=== PATIENT | female | born 1980 | race Caucasian/White ===

== ENCOUNTER 2018-12-20 04:14 | Emergency (ER) | payer SELFPAY ==
[2018-12-20] MEDS ORDERED: Zofran 4 MG/2 ML VIAL IV ONE (04:40)
[2018-12-20] MEDS ORDERED: Sodium Chloride 0.9% 1000 ML 1,000 ML IV STA (04:40)
--- NOTE | 2018-12-20 04:46 | ERPHSYRPT ---
- History of Present Illness Time Seen by Provider: 12/20/18 04:36 Historian: patient Exam Limitations: no limitations Physician History: C/o nausea, vomiting few times x 2-3 days, developed LLQ abdominal pain this morning. She denies vomiting, blood or coffee ground material, no diarrhea, or fever, chills, no urinary complaints, except nonproductive cough. Timing/Duration: day(s) (3), intermittent Activities at Onset: none Quality: cramping, sharpness Abdominal Pain Onset Location: LLQ Pain Radiation: no radiation Severity of Pain-Max: moderate Severity of Pain-Current: mild Modifying Factors: Improves With: nothing Associated Symptoms: diaphoresis, loss of appetite, nausea, vomiting Previous symptoms: no prior history Allergies/Adverse Reactions: No Known Drug Allergies Allergy (Unverified 12/20/18 09:15) - Review of Systems Constitutional: No Symptoms Ears, Nose, & Throat: No Symptoms Respiratory: No Symptoms Cardiac: No Symptoms Abdominal/Gastrointestinal: Abdominal Pain, Nausea, Vomiting Genitourinary Symptoms: No Symptoms Musculoskeletal: No Symptoms Skin: No Symptoms Neurological: No Symptoms All Other Systems: Reviewed and Negative - Female History Hx Now: No - Nursing Vital Signs Nursing Vital Signs: Initial Vital Signs Temperature 97.9 F 12/20/18 04:14 Pulse Rate 102 H 12/20/18 04:14 Respiratory Rate 102 H 12/20/18 04:14 Blood Pressure 106/93 12/20/18 04:14 O2 Sat by Pulse Oximetry 95 12/20/18 04:14 Pain Scale Pain Intensity 0 - Physical Exam General Appearance: no apparent distress Ears, Nose, Throat Exam: normal ENT inspection Neck Exam: normal inspection Respiratory Exam: normal breath sounds, lungs clear, airway intact Cardiovascular Exam: regular rate/rhythm, normal heart sounds, normal peripheral pulses, No murmur Gastrointestinal/Abdomen Exam: soft, normal bowel sounds, tenderness (mod. LLQ) , No distention, No mass, No guarding, No rebound, No organomegaly Back Exam: normal inspection, No CVA tenderness Extremity Exam: normal inspection, No calf tenderness Neurologic Exam: alert, oriented x 3, cooperative, normal mood/affect Skin Exam: normal color, warm, dry, No rash, No cyanosis, No diaphoresis Lymphatic Exam: No adenopathy SpO2 Interpretation: normal SpO2: 95 O2 Delivery: Room Air - Course Nursing assessment & vital signs reviewed: Yes - Radiology Exams Chest X-ray Interpretation: Interpreted by me, Negative - CT Exams Abdomen/Pelvis CT Interpretation: Tele-radiologist Report, Other ([place] in [place] Air[place] disease) Ordered Tests: Active Orders 24 hr Category Date Time Status IV Insertion STAT Care 12/20/18 04:40 Active ABDOMEN AND PELVIS W CONTRAST [CT] Stat Exams 12/20/18 04:41 Taken CHEST 2 VIEWS (PA AND LAT) Stat Exams 12/20/18 04:41 Taken CBC W DIFF Stat Lab 12/20/18 04:55 Completed CMP Stat Lab 12/20/18 04:55 Completed CULTURE,URINE Stat Lab 12/20/18 06:50 Received HCG QUALITATIVE,SERUM Stat Lab 12/20/18 05:12 Completed HCG,QUALITATIVE URINE Stat Lab 12/20/18 06:51 Completed LIPASE Stat Lab 12/20/18 04:55 Completed Lactic Acid Stat Lab 12/20/18 04:45 Completed UA W/RFX UR CULTURE Stat Lab 12/20/18 06:50 Completed Medication Summary Discontinued Medications Generic Name Dose Route Start Last Admin Trade Name Freq PRN Reason Stop Dose Admin Sodium Chloride 1,000 mls @ 999 mls/hr 12/20/18 04:40 12/20/18 09:15 Sodium Chloride 0.9% 1000 Ml IV 12/20/18 05:40 Infused .Q1H1M STA Infusion Sodium Chloride Confirm 12/20/18 04:59 Sodium Chloride 0.9% 1000 Ml Administered 12/20/18 05:00 Dose 1,000 mls @ ud .ROUTE .STK-MED ONE Ondansetron HCl 4 mg 12/20/18 04:40 12/20/18 05:06 Zofran 4 Mg/2 Ml Vial IV 12/20/18 04:41 4 mg STAT ONE Administration Ondansetron HCl Confirm 12/20/18 04:58 Zofran 4 Mg/2 Ml Vial Administered 12/20/18 04:59 Dose 4 mg .ROUTE .STK-MED ONE Trimethoprim/Sulfamethoxazole 1 tab 12/20/18 09:09 12/20/18 09:16 Bactrim Ds Tablet PO 12/20/18 09:10 1 tab STAT STA Administration Trimethoprim/Sulfamethoxazole Confirm 12/20/18 09:15 Bactrim Ds Tablet Administered 12/20/18 09:16 Dose 1 tab PO .STK-MED ONE Lab/Rad Data: Laboratory Result Diagrams 12/20/18 04:55 12/20/18 04:55 Laboratory Results 12/20/18 12/20/18 12/20/18 Range/Units 06:51 06:50 05:12 WBC (4.0-10.5) K/mm3 RBC (4.1-5.4) M/mm3 Hgb (12.0-16.0) gm/dl Hct (35-47) % MCV (78-100) fl MCH (26-32) pg MCHC (32-36) g/dl RDW (11.5-14.0) % Plt Count (150-450) K/mm3 MPV (6-9.5) fl Gran % (36.0-66.0) % Eos # (Auto) (0-0.5) Absolute Lymphs (auto) (1.0-4.6) Absolute Monos (auto) (0.0-1.3) Lymphocytes % (24.0-44.0) % Monocytes % (0.0-12.0) % Eosinophils % (0.00-5.0) % Basophils % (0.0-0.4) % Absolute Granulocytes (1.4-6.9) Basophils # (0-0.4) Sodium (137-145) mmol/L Potassium (3.5-5.1) mmol/L Chloride (98-107) mmol/L Carbon Dioxide (22-30) mmol/L Anion Gap (5-15) MEQ/L BUN (7-17) mg/dL Creatinine (0.52-1.04) mg/dL Estimated GFR ML/MIN Glucose (74-106) mg/dL Lactic Acid (0.4-2.0) Calcium (8.4-10.2) mg/dL Total Bilirubin (0.2-1.3) mg/dL AST (14-36) U/L ALT (0-35) U/L Alkaline Phosphatase (38-126) U/L Serum Total Protein (6.3-8.2) g/dL Albumin (3.5-5.0) g/dL Lipase (23-300) U/L Serum , Qual NEGATIVE (Negative) Urine Color YELLOW (YELLOW) Urine Appearance SLIGHTLY CLOUDY (CLEAR) Urine pH 6.0 (5-6) Ur Specific [place] 1.029 (1.005-1.025) Urine Protein NEGATIVE (Negative) Urine Ketones TRACE (NEGATIVE) Urine Blood LARGE (0-5) Jackson/ul Urine Nitrite NEGATIVE (NEGATIVE) Urine Bilirubin NEGATIVE (NEGATIVE) Urine Urobilinogen NEGATIVE (0-1) mg/dL Ur Leukocyte Esterase LARGE (NEGATIVE) Urine WBC (Auto) 26-50 (0-5) /HPF Urine RBC (Auto) 26-50 (0-2) /HPF U Epithel Cells (Auto) RARE (FEW) /HPF Urine Bacteria (Auto) FEW (NEGATIVE) /HPF Urine Mucus (Auto) SLIGHT (NEGATIVE) /HPF Urine Culture Reflexed YES (NO) Urine Glucose NEGATIVE (NEGATIVE) mg/dL Urine HCG, Qual NEGATIVE (Negative) 12/20/18 12/20/18 12/20/18 Range/Units 04:55 04:55 04:45 WBC 8.5 (4.0-10.5) K/mm3 RBC 4.83 (4.1-5.4) M/mm3 Hgb 12.2 (12.0-16.0) gm/dl Hct 37.4 (35-47) % MCV 77.4 L (78-100) fl MCH 25.3 L (26-32) pg MCHC 32.6 (32-36) g/dl RDW 14.9 H (11.5-14.0) % Plt Count 163 (150-450) K/mm3 MPV 9.3 (6-9.5) fl Gran % 73.0 H (36.0-66.0) % Eos # (Auto) 0.02 (0-0.5) Absolute Lymphs (auto) 1.49 (1.0-4.6) Absolute Monos (auto) 0.76 (0.0-1.3) Lymphocytes % 17.6 L (24.0-44.0) % Monocytes % 9.0 (0.0-12.0) % Eosinophils % 0.2 (0.00-5.0) % Basophils % 0.2 (0.0-0.4) % Absolute Granulocytes 6.20 (1.4-6.9) Basophils # 0.02 (0-0.4) Sodium 138 (137-145) mmol/L Potassium 3.8 (3.5-5.1) mmol/L Chloride 104 (98-107) mmol/L Carbon Dioxide 26 (22-30) mmol/L Anion Gap 11.0 (5-15) MEQ/L BUN 11 (7-17) mg/dL Creatinine 0.55 (0.52-1.04) mg/dL Estimated GFR > 60.0 ML/MIN Glucose 110 H (74-106) mg/dL Lactic Acid 0.8 (0.4-2.0) Calcium 8.8 (8.4-10.2) mg/dL Total Bilirubin 0.60 (0.2-1.3) mg/dL AST 26 (14-36) U/L ALT 39 H (0-35) U/L Alkaline Phosphatase 72 (38-126) U/L Serum Total Protein 7.4 (6.3-8.2) g/dL Albumin 3.9 (3.5-5.0) g/dL Lipase 92 (23-300) U/L Serum , Qual (Negative) Urine Color (YELLOW) Urine Appearance (CLEAR) Urine pH (5-6) Ur Specific [place] (1.005-1.025) Urine Protein (Negative) Urine Ketones (NEGATIVE) Urine Blood (0-5) Jackson/ul Urine Nitrite (NEGATIVE) Urine Bilirubin (NEGATIVE) Urine Urobilinogen (0-1) mg/dL Ur Leukocyte Esterase (NEGATIVE) Urine WBC (Auto) (0-5) /HPF Urine RBC (Auto) (0-2) /HPF U Epithel Cells (Auto) (FEW) /HPF Urine Bacteria (Auto) (NEGATIVE) /HPF Urine Mucus (Auto) (NEGATIVE) /HPF Urine Culture Reflexed (NO) Urine Glucose (NEGATIVE) mg/dL Urine HCG, Qual (Negative) - Progress Progress: improved Progress Note: 12/20/18 09:10 Pt states, she improved after IV saline and Zofran, did not vomit, no severe pain, or fever, reviewed her results, including CT abdomen, called Dr Ash and discussed our findings, she agreed to discahrge her home on PO antibiotics, she will follow up with her in her office in few days, patient was informed and agreed. Discussed with Dr.: Other (Dr Ash) Will see patient in: office Counseled pt/family regarding: lab results, diagnosis, need for follow-up, rad results - Departure Departure Disposition: Home Clinical Impression: Urinary tract infection Qualifiers: Urinary tract infection type: site unspecified Hematuria presence: without hematuria Qualified Code(s): N39.0 - Urinary tract infection, site not specified Condition: Stable Critical Care Time: No Referrals: ANMOL ASH DO [Primary Care Provider] - Instructions: Urinary Tract Infection, Adult (DC) Additional Instructions: Rest x 2-3 days, drink plenty of fluids, and follow up with your physician in 2- 3 days,. return if severe pain, vomiting, difficulty breathing or fever> 102 F! Prescriptions: Ondansetron ODT 4 MG [Zofran Odt 4 mg] 4 mg PO Q6H PRN PRN #10 tab.rapdis PRN Reason: Nausea/Vomiting Sulfamethoxazole/Trimethoprim [Bactrim Ds Tablet] 1 each PO BID 7 Days #14 tablet
[2018-12-20 04:58] LABS: BASOPHIL % 0.2 % (0.0-0.4); Basophil (Absolute #) 0.02 (0-0.4); Eosinophil % 0.2 % (0.00-5.0); Eosinophil (Absolute #) 0.02 (0-0.5); Hematocrit 37.4 % (35-47); Hemoglobin 12.2 gm/dl (12.0-16.0); Lymphocyte (Absolute #) 1.49 (1.0-4.6); Lymphocytes % 17.6 % (24.0-44.0); Mean Cell Volume 77.4 fl (78-100); Mean Corpuscular Hemoglobin 25.3 pg (26-32); Mean Corpuscular Hgb Concent. 32.6 g/dl (32-36); Mean Platelet Volume 9.3 fl (6-9.5); Monocyte (Absolute #) 0.76 (0.0-1.3); Platelet Count 163 K/mm3 (150-450); Red Blood Count 4.83 M/mm3 (4.1-5.4); Red Cell Distribution Width 14.9 % (11.5-14.0); White Blood Count 8.5 K/mm3 (4.0-10.5)
[2018-12-20] MEDS ORDERED: Zofran 4 MG/2 ML VIAL ONE (04:58)
[2018-12-20] MEDS ORDERED: Sodium Chloride 0.9% 1000 ML 1,000 ML ONE (04:59)
[2018-12-20 05:27] LABS: ALBUMIN 3.9 g/dL (3.5-5.0); ALKALINE PHOSPHATASE 72 U/L (38-126); BLOOD UREA NITROGEN 11 mg/dL (7-17); CHLORIDE 104 mmol/L (98-107); Calcium 8.8 mg/dL (8.4-10.2); Carbon Dioxide 26 mmol/L (22-30); Creatinine 1 0.55 mg/dL (0.52-1.04); Glucose 110 mg/dL (74-106); LIPASE 92 U/L (23-300); Potassium 3.8 mmol/L (3.5-5.1); SGOT/AST 26 U/L (14-36); SGPT/ALT 39 U/L (0-35); SODIUM 138 mmol/L (137-145); Total Protein 7.4 g/dL (6.3-8.2)
[2018-12-20 06:55] LABS: Appearance SLIGHTLY CLOUDY (CLEAR); Bacteria FEW /HPF (NEGATIVE); Bilirubin NEGATIVE (NEGATIVE); Blood LARGE Ery/ul (0-5); Epithelial Cells RARE /HPF (FEW); Glucose NEGATIVE (NEGATIVE); Ketones TRACE (NEGATIVE); Leukocyte Esterase LARGE (NEGATIVE); Mucus SLIGHT /HPF (NEGATIVE); Nitrite NEGATIVE (NEGATIVE); Protein,Urine Dip NEGATIVE (Negative); RBC 26-50 /HPF (0-2); Specific Gravity 1.029 (1.005-1.025); Urobilinogen NEGATIVE mg/dL (0-1); WBC 26-50 /HPF (0-5)
[2018-12-20] MEDS ORDERED: BACTRIM DS TABLET PO STA (09:09)
[2018-12-20] MEDS ORDERED: BACTRIM DS TABLET PO ONE (09:15)
[2018-12-20 09:17] VITALS: BP 121/78; PULSE 80
[2018-12-20 09:18] VITALS: O2SAT 95
--- NOTE | 2018-12-20 10:58 | XRAY ---
Exam: Two-view chest from 12/20/2018. Comparison: None. Indication: 38-year-old female with cough, emesis. Findings: Upright PA and lateral chest films are submitted for evaluation. The lateral film is slightly rotated. The transverse heart size is normal. The kristal and mediastinal structures appear essentially unremarkable. I see no air space infiltrates, central vascular congestion, pneumothorax, or pleural fluid. No acute osseous process is seen. Impression: 1. No acute cardiopulmonary process is seen.
--- NOTE | 2018-12-20 11:29 | XRAY ---
Exam: CT of the abdomen and pelvis with IV contrast from 12/20/2018. CTDI: 23.68 Comparison: None. Indication: 38-year-old female with left lower quadrant abdominal pain this morning, nausea and vomiting 3 days, elevated ALT, history of hypertension, no history of diarrhea or fever. Technique: Post-IV contrast axial images were obtained through the abdomen and pelvis during automated injection of 80 ML's of nonionic Isovue-370 contrast material. Reconstructed coronal and sagittal images were created and reviewed. Also, delayed axial images were obtained through the abdomen and pelvis. Findings: The visualized lung bases reveal mild "tree- in- bud" lung opacities within both posterior lower lobes, more extensive on the left than right. Differential diagnosis is broad, but this is abnormal. This may be due to infectious bronchiolitis from a variety of infectious causes including bacterial pneumonia, Mycobacterium tuberculosis, Mycobacterium avium (MAC), viral pneumonia, fungal pneumonia (for example, Aspergillus), allergic bronchopulmonary aspergillosis, and pneumocystis pneumonia. This can be seen with certain connective tissue disorders such as rheumatoid arthritis or Sjogren's syndrome. It has also been described in obliterative bronchiolitis and neoplastic etiologies. However, infective bronchiolitis is considered most likely. The liver is of unremarkable size and reveals no mass or intrahepatic biliary duct distention. The gallbladder is distended and reveals some suspicious curvilinear opacities within it which might represent gallstones. These are not densely calcified. Correlation with a gallbladder ultrasound is recommended. No gallbladder wall thickening is seen. The spleen is borderline enlarged measuring 12.5 cm in cross section and 13.9 cm in craniocaudal dimension. No focal splenic mass is seen. The pancreas reveals no significant abnormality. There is mild diffuse thickening of the limbs of the adrenal gland suggesting some bilateral adrenal gland hyperplasia. No abnormal nodularity is seen. The kidneys are remarkable for a 0.8 cm in diameter round low-attenuation lesion within the posterior lateral aspect of the midportion of the right kidney. This is too small to accurately characterize, but it might represent a small cyst. No other renal mass, renal calculi, or hydronephrosis is seen. The abdominal aorta is of normal diameter. No abnormal retroperitoneal lymphadenopathy is seen. No free intraperitoneal air or ventral abdominal wall hernia is seen. A normal-appearing appendix is seen within the right lower quadrant. Scattered stool is seen throughout the colon. No bowel obstruction or bowel wall thickening is seen. An anteflexed uterus is noted. I believe there is a small follicle within each ovary, the largest one seen within the left ovary measuring 1.7 cm in diameter on axial image #81 series 4. There is no free intraperitoneal fluid. Pelvic lymph nodes are not enlarged. Calcified phleboliths are seen within the lower pelvis bilaterally. The skeleton reveals no acute fracture or aggressive bone lesion. There is mild degenerative disc disease at both L4-L5 and L5-S1 with interspace narrowing, vacuum disc phenomena, and mild vertebral endplate spurring. I also note slight loss of the height of the L3-L4 disc. Minor degenerative changes are also seen within the lower thoracic spine. Impression: 1. I note "tree-in-bud" opacities within both lung bases, left greater than right. Differential diagnosis is broad, but this is definitely abnormal. See above. 2. I note some varying curvilinear high attenuation within the gallbladder which may represent gallstones. Correlation with a gallbladder ultrasound is recommended. No intrahepatic or extrahepatic biliary duct distention is seen. 3. Borderline splenomegaly. 4. Bilateral adrenal gland hyperplasia without nodularity. 5. 0.8 cm in diameter right renal hypoattenuated lesion which is too small to characterize, but might represent a small renal cyst. 6. Normal appendix. 7. No other acute process is seen within the abdomen or pelvis. 8. Degenerative changes are seen within the spine, as discussed above.
== END 2018-12-20 09:43 | disposition home or self-care (01) ==
LOC: ED 04:14
DX: N39.0 Urinary tract infection, site not specified (principal)
CPT/HCPCS: 36000; 36415; 71046; 74177; 80053; 81001; 81025; 83605; 83690; 84703; 85025; 87086; 96360; 96374; 99284; J2405; A9270-GY

== ENCOUNTER 2024-03-04 15:32 | Emergency (ER) | payer BC ==
[2024-03-04 15:41] VITALS: RESP 18; TEMP 98
--- NOTE | 2024-03-04 15:43 | ERPHSYRPT ---
- History of Present Illness Time Seen by Provider: 03/04/24 15:42 Source: patient, EMS Exam Limitations: no limitations Patient Subjective Stated Complaint: PT states "I fell in the driveway and hit a metal chair." Triage Nursing Assessment: Pt presented alert and oriented X 3, skin pwd. Pt has small wound in left knee, crepitus noted, when left leg was moved, blood came out of wound in knee. Physician History: The patient presents after a fall in the driveway, resulting in a significant knee injury. She reports tripping over a part of a chair that was left in the driveway. The patient felt her kneecap move down during the fall and was unable to get up from the ground. She attempted to move to the grass, thinking it would be easier to rise from there, but was unsuccessful. The patient reports a bruise on her head, presumably from the fall, and significant pain in the knee. She also mentions a previous injury to the same knee. The patient was visibly nervous and in pain during the consultation. The patient's medical history includes being on control, specifically the Depo shot, which has currently stopped her menstrual periods. She denies any known allergies to medications. The patient is 5'7" in height. The patient's knee was bandaged tightly with a pad during the consultation, and a tetanus shot was mentioned as necessary. She was able to lift her knee with some discomfort. Method of Injury: fell Occurred: just prior to arrival Quality: sharpness, stabbing, throbbing Severity of Pain-Max: severe Severity of Pain-Current: severe Lower Extremities Pain: knee: left Modifying Factors: Improves With: immobilization. Worsens With: movement Associated Symptoms: unable to bear weight, popping sensation Allergies/Adverse Reactions: No Known Drug Allergies Allergy (Unverified 12/20/18 09:15) Home Medications: Metoprolol Succinate 50 mg [Toprol Xl 50 MG] 50 mg PO DAILY 03/04/24 [History] buPROPion HCl [Wellbutrin Sr] 100 mg PO BID 03/04/24 [History] Hx Tetanus, Diphtheria Vaccination/Date Given: No Hx Influenza Vaccination/Date Given: Yes Hx Pneumococcal Vaccination/Date Given: No Immunizations Up to Date: No Travel Risk - International Travel Have you traveled outside of the country in past 3 weeks: No - Emerging Infectious Disease Are you exhibiting symptoms associated with any current EIDs: No - Review of Systems All Other Systems: Reviewed and Negative - Past Medical History Pertinent Past Medical History: Yes Neurological History: No Pertinent History ENT History: No Pertinent History Cardiac History: Hypertension Respiratory History: No Pertinent History Endocrine Medical History: No Pertinent History Musculoskeletal History: No Pertinent History GI Medical History: Gallbladder Disease History: Other Psycho-Social History: Anxiety Female Reproductive Disorders: Other Other Medical History: high risk , kidney stone - Past Surgical History Past Surgical History: No Neuro Surgical History: No Pertinent History Cardiac: No Pertinent History Respiratory: No Pertinent History Gastrointestinal: No Pertinent History Genitourinary: No Pertinent History Musculoskeletal: No Pertinent History Female Surgical History: No Pertinent History - Female History Hx Last Menstrual Period: depo Hx Now: No - Social History Smoking Status: Never smoker Exposure to second hand smoke: Yes Drug Use: none Patient Lives Alone: No - Social Determinants of Health Will the patient participate in the screening: Yes Do you worry about a steady place to live?: No Do you have any problems with any of the following?: No known problems In the past 12 months,have you had to go without utilities?: No Transportation Issues: No Has anyone in your support network made you feel unsafe?: No Have you or anyone in your house had to go without enough: No - Nursing Vital Signs Nursing Vital Signs: Initial Vital Signs Temperature 98.0 F 03/04/24 15:33 Pulse Rate 85 03/04/24 15:33 Respiratory Rate 18 03/04/24 15:33 Blood Pressure 167/88 03/04/24 15:33 O2 Sat by Pulse Oximetry 100 03/04/24 15:33 Pain Scale Pain Intensity 7 - Physical Exam General Appearance: mild distress Eyes, Ears, Nose, Throat Exam: other (ecchymosis left brow) Knees Exam: left knee: bone tenderness, deformity, joint effusion, pain, soft tissue tenderness, swelling, other (2cm laceration anterior knee above patella, active bleeding, hematoma forming) Neuro/Tendon Exam: normal sensation Mental Status Exam: alert, oriented x 3, cooperative Skin Exam: abrasion (RUE) SpO2 Interpretation: normal SpO2: 100 O2 Delivery: Room Air Procedures - Laceration/Wound Repair Left Anterior Knee Time of Procedure: 17:53 Wound Location: Left, lower leg (anterior knee) Wound Length (cm): 1.5 Wound's Depth, Shape: superficial Wound Explored: clean Irrigated: Yes Hibiclens Prep: Yes Anesthesia: 1% lidocaine w/ Epi Volume Anesthetic (ccs): 5 Wound Debrided: minimal Wound Repaired With: sutures Suture Size/Type: 3-0, prolene Number of Sutures: 1 Sterile Dressing Applied?: Yes Splint Applied?: Yes Type of Splint Applied: knee immobilizer - Course Nursing assessment & vital signs reviewed: Yes Ordered Tests: Active Orders 24 hr Category Date Time Status [place] [Catheter-[facility]] STAT Care 03/04/24 17:30 Completed IV Insertion STAT Care 03/04/24 15:45 Completed HEAD WITHOUT CONTRAST [CT] Stat Exams 03/04/24 15:43 Completed LOWER EXTREMITY WO CONTRAST [CT] Stat Exams 03/04/24 15:43 Completed CBC W DIFF Stat Lab 03/04/24 15:50 Completed CMP Stat Lab 03/04/24 15:50 Completed PROTIME WITH INR Stat Lab 03/04/24 15:50 Completed PTT Stat Lab 03/04/24 15:50 Completed Medication Summary Discontinued Medications Generic Name Dose Route Start Last Admin Trade Name Freq PRN Reason Stop Dose Admin Diphtheria/Tetanus/Acell Pertussis 0.5 ml 03/04/24 15:45 03/04/24 15:53 Tdap --Diph,Pertuss(Acell),Tet Vac/Pf 0.5 Ml Vial IM 03/04/24 15:46 0.5 ml .ONCE ONE Administration Diphtheria/Tetanus/Acell Pertussis Confirm 03/04/24 15:52 Tdap --Diph,Pertuss(Acell),Tet Vac/Pf 0.5 Ml Vial Administered 03/04/24 15:53 Dose 0.5 ml IM .STK-MED ONE Cefazolin Sodium 2 gm in 100 mls @ 200 mls/hr 03/04/24 15:50 03/04/24 16:47 Cefazolin 2 Gm/100 Ml Nacl IV 03/04/24 16:19 Infused STAT STA Infusion Cefazolin Sodium Confirm 03/04/24 15:52 Cefazolin 2 Gm/100 Ml Nacl Administered 03/04/24 15:53 Dose 2 gm in 100 mls @ ud IV .STK-MED ONE Lidocaine/Epinephrine 5 ml 03/04/24 17:08 03/04/24 17:36 Lidocaine Hcl/Epinephrine 1% 20 Ml IJ 03/04/24 17:09 5 ml STAT ONE Administration Lidocaine/Epinephrine Confirm 03/04/24 17:08 Lidocaine Hcl/Epinephrine 1% 20 Ml Administered 03/04/24 17:09 Dose 1 ml .ROUTE .STK-MED ONE Lidocaine/Epinephrine Confirm 03/04/24 17:41 Lidocaine Hcl/Epinephrine 1% 20 Ml Administered 03/04/24 17:42 Dose 5 ml .ROUTE .STK-MED ONE Morphine Sulfate 2 mg 03/04/24 15:45 03/04/24 15:54 Morphine Sulfate 2 Mg/Ml Inj IV 03/04/24 15:46 2 mg STAT ONE Administration Morphine Sulfate Confirm 03/04/24 15:51 Morphine Sulfate 2 Mg/Ml Inj Administered 03/04/24 15:52 Dose 2 mg .ROUTE .STK-MED ONE Morphine Sulfate 2 mg 03/04/24 20:59 03/04/24 21:01 Morphine Sulfate 2 Mg/Ml Inj IV 03/04/24 21:00 2 mg STAT ONE Administration Morphine Sulfate Confirm 03/04/24 21:00 Morphine Sulfate 2 Mg/Ml Inj Administered 03/04/24 21:01 Dose 2 mg .ROUTE .STK-MED ONE Ondansetron HCl 4 mg 03/04/24 15:45 03/04/24 15:54 Ondansetron Hcl 4 Mg/2 Ml Vial IV 03/04/24 15:46 4 mg STAT ONE Administration Ondansetron HCl Confirm 03/04/24 15:51 Ondansetron Hcl 4 Mg/2 Ml Vial Administered 03/04/24 15:52 Dose 4 mg .ROUTE .STK-MED ONE Lab/Rad Data: Laboratory Result Diagrams 03/04/24 15:50 03/04/24 15:50 Laboratory Results 03/04/24 03/04/24 03/04/24 Range/Units 16:04 15:50 15:50 WBC (3.98-10.04) x10^3/uL RBC (3.93-5.22) x10^6/uL Hgb (11.2-15.7) g/dL Hct (34.1-44.9) % MCV (79.4-94.8) fL MCH (25.6-32.2) pg MCHC (32.2-35.5) g/dL RDW (11.7-14.4) % Plt Count (182-369) x10^3/uL MPV (9.4-12.3) fL Gran % (34.0-71.1) % Immature Gran % (Auto) (0.001-0.429) % Nucleat RBC Rel Count (0.00-0.2) % Eos # (Auto) (0.04-0.36) x10^3/uL Immature Gran # (Auto) (0.001-0.031) x10^3u/L Absolute Lymphs (auto) (1.18-3.74) x10^3/uL Absolute Monos (auto) (0.24-0.86) x10^3/uL Absolute Nucleated RBC (0.00-0.012) x10^3u/L Lymphocytes % (19.3-51.7) % Monocytes % (4.7-12.5) % Eosinophils % (0.7-5.8) % Basophils % (0.1-1.2) % Absolute Granulocytes (1.56-6.13) x10^3/uL Basophils # (0.01-0.08) x10^3/uL PT 10.6 (9.4-12.5) SECONDS INR 0.97 (0.8-3.0) APTT 27.1 (25.1-36.5) SECONDS Sodium 137 (135-145) mmol/L Potassium 3.8 (3.5-5.1) mmol/L Chloride 101 (98-107) mmol/L Carbon Dioxide 23 (22-30) mmol/L Anion Gap 16.8 H (5-15) MEQ/L BUN 17 (7-17) mg/dL Creatinine 1.11 H (0.52-1.04) mg/dL Estimated GFR 63.3 ML/MIN Glucose 130 H (74-106) mg/dL Calcium 10.0 (8.4-10.2) mg/dL Total Bilirubin 0.50 (0.2-1.3) mg/dL AST 30 (14-36) U/L ALT 34 (0-35) U/L Alkaline Phosphatase 78 (38-126) U/L Serum Total Protein 7.3 (6.3-8.2) g/dL Albumin 4.3 (3.5-5.0) g/dL ABO Group O Rh Factor POSITIVE Antibody Screen NEGATIVE (NEGATIVE) 03/04/24 Range/Units 15:50 WBC 7.7 (3.98-10.04) x10^3/uL RBC 5.13 (3.93-5.22) x10^6/uL Hgb 13.8 (11.2-15.7) g/dL Hct 41.7 (34.1-44.9) % MCV 81.3 (79.4-94.8) fL MCH 26.9 (25.6-32.2) pg MCHC 33.1 (32.2-35.5) g/dL RDW 13.3 (11.7-14.4) % Plt Count 255 (182-369) x10^3/uL MPV 9.6 (9.4-12.3) fL Gran % 51.4 (34.0-71.1) % Immature Gran % (Auto) 0.3 (0.001-0.429) % Nucleat RBC Rel Count 0.0 (0.00-0.2) % Eos # (Auto) 0.10 (0.04-0.36) x10^3/uL Immature Gran # (Auto) 0.02 (0.001-0.031) x10^3u/L Absolute Lymphs (auto) 3.25 (1.18-3.74) x10^3/uL Absolute Monos (auto) 0.30 (0.24-0.86) x10^3/uL Absolute Nucleated RBC 0.00 (0.00-0.012) x10^3u/L Lymphocytes % 42.3 (19.3-51.7) % Monocytes % 3.9 L (4.7-12.5) % Eosinophils % 1.3 (0.7-5.8) % Basophils % 0.8 (0.1-1.2) % Absolute Granulocytes 3.95 (1.56-6.13) x10^3/uL Basophils # 0.06 (0.01-0.08) x10^3/uL PT (9.4-12.5) SECONDS INR (0.8-3.0) APTT (25.1-36.5) SECONDS Sodium (135-145) mmol/L Potassium (3.5-5.1) mmol/L Chloride (98-107) mmol/L Carbon Dioxide (22-30) mmol/L Anion Gap (5-15) MEQ/L BUN (7-17) mg/dL Creatinine (0.52-1.04) mg/dL Estimated GFR ML/MIN Glucose (74-106) mg/dL Calcium (8.4-10.2) mg/dL Total Bilirubin (0.2-1.3) mg/dL AST (14-36) U/L ALT (0-35) U/L Alkaline Phosphatase (38-126) U/L Serum Total Protein (6.3-8.2) g/dL Albumin (3.5-5.0) g/dL ABO Group Rh Factor Antibody Screen (NEGATIVE) - Progress Progress: improved Progress Note: Patient brought in by ambulance found to have a bleeding approximately 2 cm laceration on her anterior knee just above the patella. There is large amount of swelling just lateral to the laceration concerning for hematoma formation. There is appreciable crepitus over the patella. Keeping the patient in extension and placed compression dressing over the top and will send for CT scan for further evaluation. Will also get a CT scan of her head as she did hit the left side she has no neurologic deficits at this time. She reports no other areas of pain. Due to this likely being an open fracture grade I will initiate IV antibiotics with Ancef 2 g. Patient also given 2 mg of morphine IV and Zofran [address] scan is back we will touch base with orthopedic surgery. 03/04/24 16:44 Initial review of the CT scan of the knee shows a comminuted fracture of her patella. We consulted our orthopedic surgeon on-call Dr. Dominguez at 1643 who said that we are unable to keep the patient here due to being an open fracture and recommends transfer. 03/04/24 16:[address] Turner at [facility] who accepts to consult on patient at 1656. Continue abx. Ok to irrigate and close wound over fracture. Will place in a knee immobilizer at this time. 03/04/24 17:54 Dr. Nash accepts for admission at 1726. 1 3-0 prolene placed, no active bleeding once placed. Large fracture hematoma present. New compression dressing and knee immobilizer placed. Discussed with Dr.: Other (Johnny Dominguez) Counseled pt/family regarding: lab results, diagnosis, need for follow-up, rad results Medical Desision Making - Discussion of managment Care discussed with:: specialist Reviewed:: Test results, Need for additional workup Agreed on:: Treatment plan Will see patient: in hospital - Diagnostic Testing Diagnostic test were ordered, analyzed, and reviewed by me: Yes Radiological Interpretation: Interpreted by me, Reviewed by me, Teleradiologist Report - Risk of complications Low Risk: Low risk of morbidity from additional dx testing or treatment The pt has a mod risk of morbidity or mortality based on: Need for prescription drug management The pt has a high risk of morbidity or mortality based on: Decision regarding hospitilization or escalation of hosp level of care - Departure Departure Disposition: Transfer Clinical Impression: Comminuted fracture of left patella, Laceration of knee, left Condition: Good Critical Care Time: No Referrals: CHAN AKINS FNP [Primary Care Provider] - Follow up/PCP as directed Instructions: Patella Fracture (DC)
[2024-03-04] MEDS ORDERED: MORPHINE SULFATE 2 MG INJ ONE ×2 (15:51→21:00)
[2024-03-04] MEDS ORDERED: Zofran 4 MG/2 ML VIAL ONE (15:51)
[2024-03-04] MEDS ORDERED: CEFAZOLIN 2 GM/100 ML NaCl 2 GM/100 ML IVPB IV ONE (15:52)
[2024-03-04] MEDS ORDERED: Adacel Vial IM ONE (15:52)
[2024-03-04] MEDS: CEFAZOLIN 2 GM/100 ML NaCl 2 GM/100 ML IVPB IV STA (15:53)
[2024-03-04] MEDS: Adacel Vial IM ONE (15:53)
[2024-03-04] MEDS: Zofran 4 MG/2 ML VIAL IV ONE (15:54)
[2024-03-04] MEDS: MORPHINE SULFATE 2 MG INJ IV ONE ×2 (15:54→21:01)
[2024-03-04 16:15] LABS: Absolute Neutrophil Ct (ANC) 3.95 x10^3/uL (1.56-6.13); BASOPHIL % 0.8 % (0.1-1.2); Basophil (Absolute #) 0.06 x10^3/uL (0.01-0.08); Eosinophil % 1.3 % (0.7-5.8); Hematocrit 41.7 % (34.1-44.9); Hemoglobin 13.8 g/dL (11.2-15.7); IMMATURE GRAN # 0.02 x10^3u/L (0.001-0.031); IMMATURE GRAN % 0.3 % (0.001-0.429); Lymphocyte (Absolute #) 3.25 x10^3/uL (1.18-3.74); Lymphocytes % 42.3 % (19.3-51.7); Mean Cell Volume 81.3 fL (79.4-94.8); Mean Corpuscular Hemoglobin 26.9 pg (25.6-32.2); Mean Corpuscular Hgb Concent. 33.1 g/dL (32.2-35.5); Mean Platelet Volume 9.6 fL (9.4-12.3); Monocytes % 3.9 % (4.7-12.5); Neutrophil % 51.4 % (34.0-71.1); Platelet Count 255 x10^3/uL (182-369); Red Blood Count 5.13 x10^6/uL (3.93-5.22); Red Cell Distribution Width 13.3 % (11.7-14.4); White Blood Count 7.7 x10^3/uL (3.98-10.04)
[2024-03-04 16:29] LABS: ALBUMIN 4.3 g/dL (3.5-5.0); ANION GAP 16.8 MEQ/L (5-15); BILIRUBIN,TOTAL 0.5 mg/dL (0.2-1.3); Creatinine 1 1.11 mg/dL (0.52-1.04); EST GLOMERULAR FILTRATION RATE 63.3 ML/MIN; Potassium 3.8 mmol/L (3.5-5.1); Total Protein 7.3 g/dL (6.3-8.2)
[2024-03-04 16:31] LABS: INR 0.97 (0.8-3.0); PROTIME 10.6 SECONDS (9.4-12.5); PTT 27.1 SECONDS (25.1-36.5)
[2024-03-04] MEDS ORDERED: XYLOCAINE 1%/Epi 1:100000 MDV 20 ML ONE ×2 (17:08→17:41)
[2024-03-04 17:21] LABS: ABO TYPING O; Antibody Screen NEGATIVE (NEGATIVE); RH TYPING POSITIVE
--- NOTE | 2024-03-04 17:23 | XRAY ---
CLINICAL HISTORY: knee pain COMPARISON: None. TECHNIQUE: Thin axial images non-contrast of the left knee joint were obtained along with coronal and sagittal reconstructions. One of the following dose reduction techniques were utilized for this exam: Automated exposure control, adjustment of the mA and/or kV according to patient size, and use of iterative reconstruction. FINDINGS: Bones: Comminuted patellar fracture with multiple displaced bone fragments. Associated effusion/lipohemoarthrosis. Soft tissue swelling/edema overlying the patella with tiny gas locules seen. Normal alignment of the femur, tibia, and fibula. No other fractures or dislocations. No lytic or sclerotic lesions. No evidence of bone marrow edema. Joint Space: Mild osteoarthritis of the knee joint ( medial joint space narrowing, subchondral sclerosis osteophytes, and tibial spiking) No evidence of loose bodies Possible injury of both patellar retinacula, MR is advised. Indiental note of fabella. IMPRESSION: 1. Comminuted patellar fracture. 2. Joint effusion/lipohemoarthrosis. 3. Soft tissue swelling with tiny gas locules overlying the anterior knee. 4. Possible injury of both patellar retinacula, MR is advised. 5. Mild osteoarthritis of the knee. [facility] ER was called at [phone] at 04:14 PM CLINCHING MACHINE OPERATOR, 03/04/2024 Randolph Hussein was informed regarding the presence of important medical findings in the report. Electronically Signed by: Preethi Barajas MD. (03/04/2024 17:19:59 EDT)
--- NOTE | 2024-03-04 17:32 | XRAY ---
CLINICAL HISTORY: headache COMPARISON: None. TECHNIQUE: Axial non-contrast CT scan of the brain was performed from the skull base to the high parietal region. One of the following dose reduction techniques were utilized for this exam: Automated exposure control, adjustment of the mA and/or kV according to patient size, and use of iterative reconstruction. CTDI: 53.92mGy, DLP: 1016.25mGy*cm. FINDINGS: Brain Parenchyma: Right frontal subcortical tiny hypodense focus of CSF-like attenuation measuring 5 mm in maximum diameter with no appreciable mass effect upon the surrounding structures likely prominent virchow Hairston CSF space. otherwise Normal attenuation of the cerebral hemispheres, cerebellum, and brainstem. No evidence of hemorrhage, or mass effect. No abnormal areas of hypo- or hyperattenuation. Ventricular System: Ventricles are normal in size and configuration. No evidence of hydrocephalus or ventricular enlargement. Subarachnoid Spaces: Normal sulci and cisterns. No evidence of subarachnoid hemorrhage or extra-axial fluid collections. Cerebellum and Brainstem: Normal size and signal. No masses, lesions, or areas of abnormal signal. Orbits: Normal appearance of the globes, optic nerves, and extraocular muscles. No evidence of orbital masses or abnormal signal. Sinuses: Clear paranasal sinuses. No evidence of sinusitis or mucosal thickening. Mastoid Air Cells: Two tiny osteomas are seen within left mastoid air cells measuring 6 & 4.5 mm in maximum diameter, otherwise Clear mastoid air cells. No evidence of mastoiditis. Skull and Meninges: Normal skull morphology. IMPRESSION: Right frontal subcortical tiny hypodense focus likely prominent CSF virchow hairston space otherwise unremarkable CT of the head without contrast. Electronically Signed by: Preethi Barajas MD. (03/04/2024 17:27:04 EDT)
[2024-03-04] MEDS: XYLOCAINE 1%/Epi 1:100000 MDV 20 ML IJ ONE (17:36)
[2024-03-04 20:17] VITALS: PULSE 85
[2024-03-04 21:05] VITALS: BP 124/85
[2024-03-04 22:11] VITALS: O2SAT 100
== END 2024-03-04 21:30 | disposition short-term general hospital (02) ==
LOC: ED 15:32
DX: S82.042A Displaced comminuted fracture of left patella, initial encounter for closed fracture (principal); S81.012A Laceration without foreign body, left knee, initial encounter; W01.0XXA Fall on same level from slipping, tripping and stumbling without subsequent striking against object, initial encounter; Y92.007 Garden or yard of unspecified non-institutional (private) residence as the place of occurrence of the external cause; I10 Essential (primary) hypertension; Z79.899 Other long term (current) drug therapy; Z23 Encounter for immunization
CPT/HCPCS: 12001; 36000; 36415; 51702; 70450; 73700; 80053; 85025; 85610; 85730; 86850; 86900; 86901; 90471; 90715; 96365; 96372; 96374; 96375; 96376; 99285; J0690; J2270; J2405; L0172; L1830

== ENCOUNTER 2024-09-09 12:15 | Emergency (ER) | payer BC ==
[2024-09-09 12:35] VITALS: BP 163/93; PULSE 90; RESP 18; TEMP 97.5; O2SAT 100
--- NOTE | 2024-09-09 12:44 | ERPHSYRPT ---
- History of Present Illness Time Seen by Provider: 09/09/24 12:39 Source: patient Exam Limitations: no limitations Patient Subjective Stated Complaint: Pt states "I called in a refill of one of my meds and I thought it was my blood pressure med and it was not and I do not have any refills left and I cannot get it from my dr until wednesday and [facility] cannot do medication refills." Triage Nursing Assessment: Pt presented alert and oriented X 3, skin pwd. Pt ambulates with an upright steady gait, able to speak in clear full sentences. pt resting comfortably on the bed in no apparent distress. Physician History: This is a 44-year-old white female patient who arrives to the emergency department after being told by outpatient urgent care that they do not refill prescription medication. Patient has no specific complaints. However, she is out of her metoprolol to tartrate 50 mg orally twice a day medication. She will not be able to discuss this with her primary care provider until 09/11/2024. She wants no other workup performed. Timing/Duration: today Severity: mild Associated Symptoms: denies symptoms Allergies/Adverse Reactions: No Known Drug Allergies Allergy (Unverified 12/20/18 09:15) Home Medications: buPROPion HCl [Wellbutrin Sr] 100 mg PO BID 03/04/24 [History] Metoprolol Tartrate 50 mg PO BID 09/09/24 [History] Hx Tetanus, Diphtheria Vaccination/Date Given: No Hx Influenza Vaccination/Date Given: Yes Hx Pneumococcal Vaccination/Date Given: No Immunizations Up to Date: No Travel Risk - International Travel Have you traveled outside of the country in past 3 weeks: No - Emerging Infectious Disease Are you exhibiting symptoms associated with any current EIDs: No - Review of Systems Constitutional: No Symptoms Eyes: No Symptoms Ears, Nose, & Throat: No Symptoms Respiratory: No Symptoms Cardiac: No Symptoms Abdominal/Gastrointestinal: No Symptoms Genitourinary Symptoms: No Symptoms Musculoskeletal: No Symptoms Skin: No Symptoms Neurological: No Symptoms Psychological: No Symptoms Endocrine: No Symptoms Hematologic/Lymphatic: No Symptoms Immunological/Allergic: No Symptoms All Other Systems: Reviewed and Negative - Past Medical History Pertinent Past Medical History: Yes Neurological History: No Pertinent History ENT History: No Pertinent History Cardiac History: Hypertension Respiratory History: No Pertinent History Endocrine Medical History: No Pertinent History Musculoskeletal History: No Pertinent History GI Medical History: Gallbladder Disease History: Other Psycho-Social History: Anxiety Female Reproductive Disorders: Other Other Medical History: high risk , kidney stone - Past Surgical History Past Surgical History: No Neuro Surgical History: No Pertinent History Cardiac: No Pertinent History Respiratory: No Pertinent History Gastrointestinal: No Pertinent History Genitourinary: No Pertinent History Musculoskeletal: No Pertinent History Female Surgical History: No Pertinent History - Female History Hx Last Menstrual Period: on control does not have them Hx Now: No - Social History Smoking Status: Never smoker Exposure to second hand smoke: Yes Drug Use: none - Social Determinants of Health Will the patient participate in the screening: Yes Do you worry about a steady place to live?: No Do you have any problems with any of the following?: No known problems In the past 12 months,have you had to go without utilities?: No Transportation Issues: No Has anyone in your support network made you feel unsafe?: No Have you or anyone in your house had to go w/o enough food: No - Nursing Vital Signs Nursing Vital Signs: Initial Vital Signs Temperature 97.5 F 09/09/24 12:29 Pulse Rate 90 09/09/24 12:29 Respiratory Rate 18 09/09/24 12:29 Blood Pressure 163/93 09/09/24 12:29 O2 Sat by Pulse Oximetry 100 09/09/24 12:29 Pain Scale Pain Intensity 0 - Physical Exam General Appearance: no apparent distress, alert, anxiety Eye Exam: PERRL/EOMI, eyes nml inspection Ears, Nose, Throat Exam: normal ENT inspection, moist mucous membranes Neck Exam: normal inspection, non-tender, supple, full range of motion Gastrointestinal/Abdomen Exam: No tenderness Pelvic Exam: not done Rectal Exam: not done Back Exam: normal inspection, normal range of motion, No CVA tenderness, No vertebral tenderness Extremity Exam: normal inspection, normal range of motion, pelvis stable Neurologic Exam: alert, oriented x 3, cooperative, educational resource coordinator II-XII nml as tested, nml cerebellar function, nml station & gait, sensation nml Skin Exam: normal color, warm, dry Lymphatic Exam: No adenopathy SpO2 Interpretation: normal SpO2: 100 O2 Delivery: Room Air - Course Nursing assessment & vital signs reviewed: Yes - Progress Progress: unchanged Progress Note: 09/09/24 12:41 My medical decision making and the assignment of low complexity of this patient's medical issue today is based on review of the patient's past medical history, review the patient's medication list, review the patient drug allergy list, history present illness and physical findings on examination. A workup in this patient is not necessary. She is here for medication refill only. Differential diagnosis is medication refill Counseled pt/family regarding: diagnosis, need for follow-up Medical Desision Making - Diagnostic Testing Diagnostic test were ordered, analyzed, and reviewed by me: No - Risk of complications The pt has a mod risk of morbidity or mortality based on: Need for prescription drug management - Departure Departure Disposition: Home Clinical Impression: Encounter for medication refill Condition: Stable Critical Care Time: No Referrals: CHAN AKINS FNP [Primary Care Provider] - Follow up/PCP as directed Additional Instructions: Take your medications as prescribed. Call your prescribing provider on 09/11/2024, to make arrangements for follow-up appointment for further evaluation management. Prescriptions: Metoprolol Tartrate 50 mg [Lopressor 50 MG] 50 mg PO BID #10 tablet
== END 2024-09-09 12:57 | disposition home or self-care (01) ==
LOC: ED 12:15
DX: Z76.0 Encounter for issue of repeat prescription (principal); I10 Essential (primary) hypertension; Z79.899 Other long term (current) drug therapy
CPT/HCPCS: 99281